=== PATIENT | male | born 1970 | race African-American/Black ===

== ENCOUNTER 2017-08-30 11:53 | Emergency (ER) | payer OTHER ==
[2017-08-30 14:20] LABS: ADD MAN DIFF? NO
[2017-08-30 14:21] LABS: WHITE BLOOD COUNT 4.7 10^3/ul (4.8-10.8)
[2017-08-30 14:21] LABS: BASOPHILS % 0.2 % (0.0-2.0); EOSINOPHILS % 0.8 % (0.0-7.0); HEMATOCRIT 36.3 % (42.0-52.0); HEMOGLOBIN 12.1 g/dl (14.0-18.0); LYMPHOCYTES # 0.9 10^3/ul (0.8-2.9); LYMPHOCYTES % 18.1 % (15.0-51.0); MEAN CORPUSCULAR HEMOGLOBIN 30.3 pg (29.0-33.0); MEAN CORPUSCULAR HGB CONC 33.3 g/dl (32.0-37.0); MEAN PLATELET VOLUME 9.2 fl (7.4-10.4); MONOCYTE # 0.8 10^3/ul (0.3-0.9); MONOCYTES % 16.9 % (0.0-11.0); NEUTROPHILS % 63.6 % (39.0-77.0); PLATELET COUNT 298 10^3/UL (140-415); RED BLOOD COUNT 3.99 10^6/ul (4.70-6.10); RED CELL DISTRIBUTION WIDTH 12.7 % (11.5-14.5)
[2017-08-30 14:55] LABS: ALANINE AMINOTRANSFERASE 44 IU/L (13-69); ALBUMIN 3.6 g/dl (3.3-4.9); ALBUMIN/GLOBULIN RATIO 0.54; ALKALINE PHOSPHATASE 73 IU/L (42-121); ANION GAP 12 (8-16); ASPARTATE AMINO TRANSFERASE 51 IU/L (15-46); BILIRUBIN,INDIRECT 0.4 mg/dl (0-1.1); BILIRUBIN,TOTAL 0.4 mg/dl (0.2-1.3); BLOOD UREA NITROGEN 15 mg/dl (7-20); CALCIUM 9.1 mg/dl (8.4-10.2); CARBON DIOXIDE 23 mmol/L (21-31); CHLORIDE 108 mmol/L (97-110); CREATININE 1.27 mg/dl (0.61-1.24); GLUCOSE 87 mg/dl (70-220); LIPASE 96 U/L (23-300); POTASSIUM 3.5 mmol/L (3.5-5.1); SODIUM 139 mmol/L (135-144); TOTAL PROTEIN 10.2 g/dl (6.1-8.1)
== END 2017-08-30 15:50 | disposition home or self-care (01) ==
LOC: FTE 11:53 → E/R 15:50
DX: K80.20 Calculus of gallbladder without cholecystitis without obstruction (principal); D64.9 Anemia, unspecified; D72.819 Decreased white blood cell count, unspecified; R19.7 Diarrhea, unspecified; J45.909 Unspecified asthma, uncomplicated; F17.210 Nicotine dependence, cigarettes, uncomplicated; Z91.010 Allergy to peanuts
CPT/HCPCS: 36415; 74176; 80053; 83690; 85025; 99284-25

== ENCOUNTER 2017-09-22 21:28 | Emergency (ER) | payer OTHER ==
[2017-09-22] MEDS: ONDANSETRON (ODT) 4 MG TAB ODT (22:23)
[2017-09-22] MEDS: HYDROCODONE/APAP (5/325) TAB PO (22:23)
== END 2017-09-23 00:16 | disposition home or self-care (01) ==
LOC: E/R 09-23 00:16
DX: S50.02XA Contusion of left elbow, initial encounter (principal); S09.90XA Unspecified injury of head, initial encounter; S13.9XXA Sprain of joints and ligaments of unspecified parts of neck, initial encounter; S80.02XA Contusion of left knee, initial encounter; S60.211A Contusion of right wrist, initial encounter; S00.01XA Abrasion of scalp, initial encounter; J45.909 Unspecified asthma, uncomplicated; F17.210 Nicotine dependence, cigarettes, uncomplicated; V19.49XA Pedal cycle driver injured in collision with other motor vehicles in traffic accident, initial encounter; Z91.010 Allergy to peanuts
CPT/HCPCS: 70450; 71045; 72125; 72170; 73080-LT; 73110-RT; 73562; 99285-25

== ENCOUNTER 2017-11-12 11:43 | Emergency (ER) | payer OTHER | END 2017-11-12 12:42 | disposition home or self-care (01) | LOC: E/R 11:43 | DX: F15.10 Other stimulant abuse, uncomplicated (principal); J45.909 Unspecified asthma, uncomplicated; Z87.891 Personal history of nicotine dependence | CPT/HCPCS: 99282 ==

== ENCOUNTER 2017-11-13 05:58 | Emergency (ER) | payer OTHER | END 2017-11-13 07:00 | disposition home or self-care (01) | LOC: E/R 05:58 | DX: F99 Mental disorder, not otherwise specified (principal); J45.909 Unspecified asthma, uncomplicated; Z87.891 Personal history of nicotine dependence; Z91.010 Allergy to peanuts | CPT/HCPCS: 99282 ==

== ENCOUNTER 2017-12-17 19:00 | Emergency (ER) | payer OTHER | END 2017-12-17 20:32 | disposition home or self-care (01) | LOC: FTE 19:00 | DX: R21 Rash and other nonspecific skin eruption (principal); J45.909 Unspecified asthma, uncomplicated; F17.210 Nicotine dependence, cigarettes, uncomplicated; Z21 Asymptomatic human immunodeficiency virus [HIV] infection status | CPT/HCPCS: 99282; Z7502 ==